=== PATIENT | female | born 1935 | race Caucasian/White ===

== ENCOUNTER 2019-04-26 12:21 | Outpatient (CLI) | payer MEDICARE ==
[2019-04-26 13:21] LABS: CREATININE 0.71 mg/dL (0.55-1.02)
[2019-04-26] MEDS ORDERED: OMNIPAQUE 350 MG/ML, 100ML BOTTLE ONE (15:18)
== END 2019-04-26 23:59 | disposition home or self-care (01) ==
LOC: RAD 12:21
PROVIDERS: ATTEND Obstetrics & Gynecology
DX: N95.0 Postmenopausal bleeding (principal); R19.00 Intra-abdominal and pelvic swelling, mass and lump, unspecified site; J98.4 Other disorders of lung; E27.8 Other specified disorders of adrenal gland; K57.30 Diverticulosis of large intestine without perforation or abscess without bleeding; M47.816 Spondylosis without myelopathy or radiculopathy, lumbar region; M16.12 Unilateral primary osteoarthritis, left hip; N85.2 Hypertrophy of uterus; Z96.642 Presence of left artificial hip joint; D25.9 Leiomyoma of uterus, unspecified; N28.1 Cyst of kidney, acquired; K76.9 Liver disease, unspecified
CPT/HCPCS: 36415; 74177; 82565; Q9967

== ENCOUNTER 2019-05-06 05:03 | Inpatient (IN) | payer MEDICARE, MEDICAID ==
[~2019-05-06] VITALS: Ht 152.4 cm; Wt 73.0 kg
[2019-05-06 06:19] VITALS: BP 162/85
[2019-05-06] MEDS ORDERED: LACTATED RINGERS 1,000 ML IV SCH (06:25)
[2019-05-06] MEDS ORDERED: LIDOCAINE-MPF 1%, 2ML ONE (06:28)
[2019-05-06] MEDS ORDERED: CEFOTETAN PMX 2GM/50ML 50 ML IV ONE (06:30)
[2019-05-06] MEDS ORDERED: LIDOCAINE-MPF 1%, 2ML INFIL ONE (06:30)
[2019-05-06] MEDS ORDERED: INDOCYANINE GREEN 25 MG VIAL ONE (06:53)
[2019-05-06] MEDS ORDERED: BUPIVACAINE/PF 0.25% ONE (06:53)
[2019-05-06] MEDS ORDERED: EPINEPHRINE 1 MG/ML, 1ML ONE (06:54)
[2019-05-06 06:57] LABS: BASOPHILS # (AUTO) 0.01 x10^3/uL (0-0.1); BASOPHILS % (AUTO) 0 % (0-1); EOSINOPHILS # (AUTO) 0.09 x10^3/uL (0-0.4); EOSINOPHILS % (AUTO) 1 % (1-7); LYMPHOCYTES # (AUTO) 1.41 x10^3/uL (1-3.4); LYMPHOCYTES % (AUTO) 21 % (22-44); MD NO; MEAN CORPUSCULAR HEMOGLOBIN 29.5 pg (27.0-34.8); MEAN CORPUSCULAR HGB CONC 32.3 g/dL (32.4-35.8); MEAN CORPUSCULAR VOLUME 91.4 fL (80-100); MEAN PLATELET VOLUME 8.3 fL (7.4-10.4); MONOCYTES # (AUTO) 0.45 x10^3/uL (0.2-0.8); MONOCYTES % (AUTO) 7 % (2-9); NEUTROPHILS # (AUTO) 4.72 x10^3/uL (1.8-6.8); NEUTROPHILS % (AUTO) 71 % (42-75); PLATELET COUNT 243 x10^3/uL (130-400); RED BLOOD COUNT 4.92 x10^6/uL (3.82-5.3); RED CELL DISTRIBUTION WIDTH 13.9 % (9.6-15.2)
[2019-05-06] MEDS ORDERED: CALC1TAB58 PO (06:57)
[2019-05-06] MEDS ORDERED: ASCO10004 PO (06:57)
[2019-05-06] MEDS ORDERED: GLUC1TAB55 PO (06:57)
[2019-05-06] MEDS ORDERED: RANI150T4 PO (06:57)
[2019-05-06] MEDS ORDERED: LOVA20TA2 PO (06:57)
[2019-05-06] MEDS ORDERED: DICL100G25 TP (06:57)
[2019-05-06] MEDS ORDERED: CARV6.252 PO (06:57)
[2019-05-06] MEDS ORDERED: BENA40TA3 PO (06:57)
[2019-05-06] MEDS ORDERED: HYDR-3245 PO (06:57)
[2019-05-06 07:07] LABS: INTERNATIONAL NORMALIZED RATIO 1.03 (0.93-1.1); PROTHROMBIN TIME 10.8 Seconds (9.6-11.5)
[2019-05-06] MEDS ORDERED: POTA20TA89 PO (07:08)
[2019-05-06] MEDS ORDERED: FURO20TA3 PO (07:08)
[2019-05-06] MEDS ORDERED: AMLO-150 PO (07:08)
[2019-05-06 07:10] LABS: ALANINE AMINOTRANSFERASE 19 U/L (12-78); ANION GAP 6 mmol/L (5-15); CALCIUM 9.2 mg/dL (8.5-10.1); CHLORIDE 109 mmol/L (98-107); CREATININE 0.64 mg/dL (0.55-1.02)
[2019-05-06 07:12] LABS: ALKALINE PHOSPHATASE 64 U/L (45-117); BILIRUBIN,TOTAL 0.6 mg/dL (0.2-1.0); TOTAL PROTEIN 7.8 g/dL (6.4-8.2)
[2019-05-06] MEDS ORDERED: FENTANYL PF 250 MCG/5ML ONE (07:27)
[2019-05-06] MEDS ORDERED: MIDAZOLAM 1 MG/ML, 2ML ONE (07:27)
[2019-05-06] MEDS ORDERED: GABAPENTIN 300 MG CAPSULE PO ONE (07:30)
[2019-05-06] MEDS ORDERED: ACETAMINOPHEN 500 MG TABLET PO ONE (07:30)
[2019-05-06] MEDS ORDERED: KETAMINE 10 MG/ML, 20ML ONE (07:36)
[2019-05-06] MEDS ORDERED: HYDROmorphone 2 MG/ML, 1ML ONE (07:36)
[2019-05-06] MEDS ORDERED: PHENYLEPHRINE 10 MG/ML ONE (07:50)
[2019-05-06] MEDS ORDERED: PROMETHAZINE 25 MG/ML, 1ML IV PRN (09:00)
[2019-05-06] MEDS ORDERED: MIDAZOLAM 1 MG/ML, 2ML IV PRN (09:00)
[2019-05-06] MEDS ORDERED: hydrALAzine 20 MG/ML, 1ML IV PRN (09:00)
[2019-05-06] MEDS ORDERED: MEPERIDINE/PF 25MG/ML,1ML IVPush PRN (09:00)
[2019-05-06] MEDS ORDERED: OXYcodone 5 MG/5 ML ORAL.SOL UDC PO PRN (09:00)
[2019-05-06] MEDS ORDERED: ALBUTEROL/IPRATROPIUM 2.5MG/0.5MG, 3 ML NPPB PRN (09:00)
[2019-05-06] MEDS ORDERED: METOPROLOL 1 MG/ML, 5ML IV PRN (09:00)
[2019-05-06] MEDS ORDERED: HYDROmorphone 2 MG/ML, 1ML IVPush PRN (09:00)
[2019-05-06] MEDS ORDERED: DIAZEPAM 5 MG/ML, 2ML IVPush PRN (09:00)
[2019-05-06] MEDS ORDERED: BUPIVACAINE/PF-EPI 0.25% 1:200K INFIL ONE (09:01)
[2019-05-06] MEDS ORDERED: NEOSTIGMINE 1 MG/ML, 10ML ONE (10:16)
[2019-05-06] MEDS ORDERED: PROPOFOL 10 MG/ML, 20ML ONE (10:16)
[2019-05-06] MEDS ORDERED: ONDANSETRON 2MG/ML, 2ML ONE (10:16)
[2019-05-06] MEDS ORDERED: DEXAMETHASONE 4 MG/ML, 1ML ONE (10:16)
[2019-05-06] MEDS ORDERED: ROCURONIUM 10MG/ML,5ML ONE (10:16)
[2019-05-06] MEDS ORDERED: GLYCOPYRROLATE 0.2MG/1ML, 5ML ONE (10:16)
[2019-05-06] MEDS ORDERED: KETOROLAC 30 MG/1 ML ONE (10:17)
[2019-05-06] MEDS ORDERED: LIDOCAINE-MPF 2% ,5ML ONE (10:17)
[2019-05-06] MEDS ORDERED: EPHEDRINE 50 MG/ML, 1ML ONE (11:12)
[2019-05-06] MEDS ORDERED: EPHEDRINE 50 MG/ML, 1ML IVPush PRN (11:30)
[2019-05-06] MEDS ORDERED: HYDROcodone/APAP 7.5-325MG/15ML UDC ONE (11:53)
[2019-05-06] MEDS ORDERED: HYDROcodone/APAP 7.5-325MG/15ML UDC PO PRN (12:00)
== END 2019-05-06 16:25 | disposition home or self-care (01) | DRG 740 ==
LOC: ORIP 05:03 → EDSTATUS 09:00
PROVIDERS: ADMIT Surgery; ATTEND Surgery
PROC: 0UT24ZZ Resection of Bilateral Ovaries, Percutaneous Endoscopic Approach (ICD-10-PCS; 2019-05-06)
PROC: 0FT44ZZ Resection of Gallbladder, Percutaneous Endoscopic Approach (ICD-10-PCS; 2019-05-06)
PROC: 0DNW4ZZ Release Peritoneum, Percutaneous Endoscopic Approach (ICD-10-PCS; 2019-05-06)
PROC: 8E0W4CZ Robotic Assisted Procedure of Trunk Region, Percutaneous Endoscopic Approach (ICD-10-PCS; 2019-05-06)
PROC: 0UT94ZZ Resection of Uterus, Percutaneous Endoscopic Approach (ICD-10-PCS; principal; 2019-05-06 08:30)
PROC: 0UT74ZZ Resection of Bilateral Fallopian Tubes, Percutaneous Endoscopic Approach (ICD-10-PCS; 2019-05-06 08:30)
DX: C54.1 Malignant neoplasm of endometrium (principal); K80.10 Calculus of gallbladder with chronic cholecystitis without obstruction; I10 Essential (primary) hypertension; E66.9 Obesity, unspecified; Z68.31 Body mass index [BMI] 31.0-31.9, adult; D64.9 Anemia, unspecified; K82.9 Disease of gallbladder, unspecified; N95.0 Postmenopausal bleeding; N73.6 Female pelvic peritoneal adhesions (postinfective)
CPT/HCPCS: 36415; 71045; 74018; 80053; 85025; 85610; 85730; 86304; 86850; 86900; 86923; 88112; 88304; 88305; 88307; 88331; 93005; J0171; J1100; J1170; J1885; J2250; J2405; J2704; J2710; J3010; J3490; J2370; J7120